=== PATIENT | male | born 1950 | race Caucasian/White ===

== ENCOUNTER 2019-10-17 16:06 | Day surgery (SDC) | payer MEDICARE, SELFPAY ==
[2019-10-17] VITALS (9 sets, daily range): BP systolic 111–168; BP diastolic 59–99; PULSE 63–91; RESP 16–22; TEMP 36.6–37; O2SAT 93–97
--- NOTE | 2019-10-17 16:29 | ED.GENADULT ---
HPI - General Adult General Chief complaint: Unspecified Stated complaint: food bolus Time Seen by Provider: 10/17/19 16:08 Source: RN notes reviewed History of Present Illness HPI narrative: Patient presents emergency department from home for esophageal food impaction. Patient states he was eating roast beef approximate 1 PM states the food became stuck. He states he has a history of food impactions performed past and has been dilated by Dr. Roper with the last time approximately 5 years ago. He states he is tried drinking Sprite with normal results and the Sprite will come right back up. he denies any fevers or chills chest pain shortness of breath or any other symptoms Related Data Home Medications Medication Instructions Recorded Confirmed amlodipine 10/17/19 brinzolamide [Azopt] 10/17/19 10/17/19 budesonide-formoterol [Symbicort] INHALATION 10/17/19 clopidogrel 10/17/19 lisinopril 10/17/19 methylprednisolone mg 10/17/19 rosuvastatin mg 10/17/19 Allergies Allergy/AdvReac Type Severity Reaction Status Date / Time pilocarpine Allergy Unknown FELT LIKE Verified 10/17/19 16:28 I WAS HAVING A HEART ATTACK, MY HEART WAS RACING timolol Allergy Unknown FELT LIKE Verified 10/17/19 16:28 I WAS HAVING A HEART ATTACK, MY HEART WAS RACING Review of Systems Review of Systems: Narrative: Gen.: Denies fevers or chills ENT: Denies congestion Respiratory: Denies shortness of breath or cough CV: Denies chest pain or palpitations GI: Denies abdominal pain nausea, emesis or diarrhea reports food impaction Musculoskeletal: Denies back pain or muscle pain Neuro: Denies numbness, tingling, weakness or focal weakness Skin: Denies rash Except as documented, all other systems reviewed and negative [facility] Past Medical History Medical History (Updated 10/17/19 @ 18:01 by Troy Abraham CRNA) Esophageal stricture Surgical History Surgical History (Updated 10/17/19 @ 18:02 by Troy Abraham CRNA) History of total bilateral knee replacement Social History Social History (Updated 10/17/19 @ 16:30 by Dharmesh Lazcano DO) Smoking status: Former smoker Gender identity (if verbalized by the patient): Male Exam Narrative: Exam Narrative: APPEARANCE: No acute distress, nontoxic, resting in bed EYES: EOMI HEENT: Normocephalic, atraumatic, OMM airway patent RESPIRATORY: No respiratory distress Clear to auscultation bilaterally with no rhonchi wheezing or rales. CARDIOVASCULAR: Regular rate and rhythm without murmurs rubs or gallops. ABDOMINAL: Soft, nontender, nondistended, no rebound or guarding MUSCULOSKELETAl: Moves all extremities. NEURO: Awake and alert. Following commands, speech normal, no focal deficits SKIN:: Warm, dry. No rashes lesions or abrasions PSYCHIATRIC: Normal affect/mood, Course Course Emergency Course: Patient given medications with no movement of food bolus. Called and discussed with Dr. Coyne. Will take patient to the GI lab at this time Discussed with patient plan for GI lab. In agreement Vital Signs Vital signs: Vital Signs Temperature 98.6 F 10/17/19 16:23 Pulse Rate 80 10/17/19 16:23 Respiratory Rate 17 10/17/19 16:23 Blood Pressure 134/99 H 10/17/19 16:23 Pulse Oximetry 97 10/17/19 16:23 Temperature 98.5 F 10/17/19 17:50 Pulse Rate 76 10/17/19 17:50 Respiratory Rate 16 10/17/19 17:50 Blood Pressure 113/81 10/17/19 17:50 Pulse Oximetry 97 10/17/19 17:50 Medical Decision Making Vital Signs Vital Signs: Vital Signs Temperature 98.6 F 10/17/19 16:23 Pulse Rate 80 10/17/19 16:23 Respiratory Rate 17 10/17/19 16:23 Blood Pressure 134/99 H 10/17/19 16:23 Pulse Oximetry 97 10/17/19 16:23 Temperature 98.5 F 10/17/19 17:50 Pulse Rate 76 10/17/19 17:50 Respiratory Rate 16 10/17/19 17:50 Blood Pressure 113/81 10/17/19 17:50 Pulse Oxime
[2019-10-17] MEDS: HYOSCYAMINE SULFATE 0.125 MG TABLET PO (16:31)
[2019-10-17] MEDS: GLUCAGON FOR INJ 1 MG VIAL IV PUSH (16:32)
[2019-10-17] MEDS: NITROGLYCERIN SL 0.4 MG TABLET SUBLINGUAL (17:06)
--- NOTE | 2019-10-17 17:52 | WPDANESEPP ---
Anes - Eval Pre Procedure Procedure: EGD food bolus extraction Date/Time: 10/17/19 17:52 Surgeon: Doretha Pre Op Diagnosis: food bolus Patient Data Age: 69 Gender: M Height: 1.75 m Weight: 90 kg Last Vital Signs Temp 36.9 C 10/17/19 17:50 Pulse 76 10/17/19 17:50 Resp 16 10/17/19 17:50 BP 113/81 10/17/19 17:50 Pulse Ox 97 10/17/19 17:50 Allergies Allergy/AdvReac Type Severity Reaction Status Date / Time pilocarpine Allergy Unknown FELT LIKE Verified 10/17/19 18:40 I WAS HAVING A HEART ATTACK, MY HEART WAS RACING timolol Allergy Unknown FELT LIKE Verified 10/17/19 18:40 I WAS HAVING A HEART ATTACK, MY HEART WAS RACING Home Medications Medication Instructions Recorded Confirmed Type Azopt 10/17/19 10/17/19 History amlodipine 10/17/19 History budesonide-formoterol [Symbicort] INHALATION 10/17/19 History clopidogrel 10/17/19 History lisinopril 10/17/19 History methylprednisolone mg 10/17/19 History rosuvastatin mg 10/17/19 History Patient hx anesthesia problems: none Family hx anesthesia problems: none PMFSH Past Medical History Medical History Esophageal stricture HTN (hypertension) Hypercholesteremia Overweight (BMI 25.0-29.9) Retinal detachment Surgical History Surgical History History of total bilateral knee replacement Social History Social History (Updated 10/17/19 @ 16:30 by Dharmesh Lazcano DO) Smoking status: Former smoker Gender identity (if verbalized by the patient): Male Exam Day of Procedure 10/17/19 17:52 Patient weight: overweight Heart: regular rate and rhythm Lungs: clear to auscultation and normal air movement Airway: Mallampati scale class II Neurological: alert and oriented
[2019-10-17 18:05] LABS: Basophils Absolute Auto 0.1 K/mm3 (0.0-0.1); Basophils Percent Auto 0.7 % (0.2-1.2); Eosinophils Absolute Auto 0.3 K/mm3 (0-0.3); Eosinophils Percent Auto 2.8 % (0-4.4); Hematocrit 45.1 % (42.0-52.0); Hemoglobin 15.8 g/dL (14.0-18.0); Immature Granulocyte Absolute 0.05 K/mm3 (0.00-0.031); Immature Granulocyte Percent A 0.4 % (0-0.5); Lymphocytes Absolute Auto 1.78 K/mm3 (0.9-3.2); Lymphocytes Percent Auto 15.6 % (18.3-44.2); Mean Corpuscular Hemoglobin 31.5 pg (26-34); Mean Platelet Volume 8.8 fl (7.4-10.4); Monocytes Absolute Auto 0.8 K/mm3 (0.1-0.6); Monocytes Percent Auto 6.7 % (2.6-8.5); Neutrophils Absolute Auto 8.4 K/mm3 (1.3-6.7); Neutrophils Percent Auto 73.8 % (45.5-73.1); Platelet Count Result 283 k/mm3 (150-375); Red Blood Count 5.01 M/mm3 (4.6-6.20); Red Cell Distribution Width 13.2 % (11.5-14.5); White Blood Count 11.4 K/mm3 (4.5-10.0)
[2019-10-17 18:12] LABS: Prothrombin Time 13.1 Seconds (11.1-14.7)
[2019-10-17 18:13] LABS: Partial Thromboplastin Time 26.5 SECONDS (22.3-36.8)
[2019-10-17 18:15] LABS: Anion Gap 9 mmol/L (8-16); Blood Urea Nitrogen 20 mg/dL (9-20); Calcium 9.2 mg/dL (8.4-10.2); Carbon Dioxide 22 mmol/L (22-30); Chloride 108 mmol/L (98-107); Estimated CRCL calculation 62 ml/min; Estimated Glomerular Filt Rate > 60; Glucose 102 mg/dL (75-110); Potassium 4.2 mmol/L (3.4-5.0); Sodium 139 mmol/L (137-145)
--- NOTE | 2019-10-17 18:29 | WPDANESEPPF ---
Anes - Initial Pre Proc Eval Date/Time: 10/17/19 18:29 Surgeon: Tyler Vernon MD Pre Op Diagnosis: food bolus Patient Data Age: 69 Gender: M Height: 1.75 m Weight: 90 kg Last Vital Signs Temp 36.8 C 10/17/19 18:24 Pulse 74 10/17/19 18:24 Resp 16 10/17/19 18:24 BP 147/80 H 10/17/19 18:24 Pulse Ox 95 10/17/19 18:24 Allergies Allergy/AdvReac Type Severity Reaction Status Date / Time pilocarpine Allergy Unknown FELT LIKE Verified 10/17/19 16:28 I WAS HAVING A HEART ATTACK, MY HEART WAS RACING timolol Allergy Unknown FELT LIKE Verified 10/17/19 16:28 I WAS HAVING A HEART ATTACK, MY HEART WAS RACING Home Medications Medication Instructions Recorded Confirmed Type amlodipine 10/17/19 History brinzolamide [Azopt] 10/17/19 10/17/19 History budesonide-formoterol [Symbicort] INHALATION 10/17/19 History clopidogrel 10/17/19 History lisinopril 10/17/19 History methylprednisolone mg 10/17/19 History rosuvastatin mg 10/17/19 History Laboratory Tests 10/17/19 10/17/19 10/17/19 17:58 17:58 17:58 WBC 11.4 K/mm3 H K/mm3 (4.5-10.0) RBC 5.01 M/mm3 M/mm3 (4.6-6.20) Hgb 15.8 g/dL g/dL (14.0-18.0) Hct 45.1 % % (42.0-52.0) MCV 90.0 fl fl (80-100) MCH 31.5 pg pg (26-34) MCHC 35.0 g/dl g/dl (32-36) RDW 13.2 % % (11.5-14.5) Plt Count 283 k/mm3 k/mm3 (150-375) MPV 8.8 fl fl (7.4-10.4) Immature Gran % (Auto) 0.4 % % (0-0.5) Neut % (Auto) 73.8 % H % (45.5-73.1) Lymph % (Auto) 15.6 % L % (18.3-44.2) [place] % (Auto) 6.7 % % (2.6-8.5) Eos % (Auto) 2.8 % % (0-4.4) Baso % (Auto) 0.7 % % (0.2-1.2) Lymph # (Auto) 1.78 K/mm3 K/mm3 (0.9-3.2) [place] # (Auto) 0.8 K/mm3 H K/mm3 (0.1-0.6) Eos # (Auto) 0.3 K/mm3 K/mm3 (0-0.3) Baso # (Auto) 0.1 K/mm3 K/mm3 (0.0-0.1) Abs Immat Gran (auto) 0.05 K/mm3 H K/mm3 (0.00-0.031) Absolute Neuts (auto) 8.4 K/mm3 H K/mm3 (1.3-6.7) Absolute Nucleated RBC 0.0 K/mm3 K/mm3 (0.0-0.012) Nucleated RBC % 0.0 % % (0.0-0.2) PT 13.1 Seconds Seconds (11.1-14.7) INR 1.0 APTT 26.5 SECONDS SECONDS (22.3-36.8) Sodium 139 mmol/L mmol/L (137-145) Potassium 4.2 mmol/L mmol/L (3.4-5.0) Chloride 108 mmol/L H mmol/L (98-107) Carbon Dioxide 22 mmol/L mmol/L (22-30) Anion Gap 9 mmol/L mmol/L (8-16) BUN 20 mg/dL mg/dL (9-20) Creatinine 1.00 mg/dL mg/dL (0.7-1.3) Estim Creat Clear Calc 62 ml/min ml/min Estimated GFR > 60 (59 - ) Glucose 102 mg/dL mg/dL (75-110) Calcium 9.2 mg/dL mg/dL (8.4-10.2) Patient hx anesthesia problems: none Family hx anesthesia problems: none [facility] Past Medical History Medical History (Updated 10/17/19 @ 18:36 by Zaid Brown MD) Esophageal stricture HTN (hypertension) Hypercholesteremia Overweight (BMI 25.0-29.9) Retinal detachment Surgical History Surgical History (Updated 10/17/19 @ 18:02 by Troy Abraham CRNA) History of total bilateral knee replacement Social History Social History (Updated 10/17/19 @ 16:30 by Dharmesh Lazcano DO) Smoking status: Former smoker Gender identity (if verbalized by the patient): Male Anes - Eval Final PreProcedure Day of Procedure 10/17/19 18:29 Patient weight: overweight Heart: regular rate and rhythm Lungs: clear to auscultation and normal air movement Airway: Mallampati scale class II Neurological: alert and oriented Last oral intake: >/= 8 hours ASA classification: III Emergent: yes Anesthetic plan: proceed Anesthesia type and monitoring: general ETT Informed Consent: The patient
--- NOTE | 2019-10-17 18:41 | PM.HPGS ---
History of Present Illness History of Present Illness Consent: Risks, benefits, and alternatives have been discussed and questions answered. Patient agrees to proceed with procedure. Chief complaint: food bolus Narrative: Jessee Holcomb is a 69 year old W male Who was eating roast beef at approximately 1:00 a.m. this afternoon and last by roast beef stuck in his esophagus began having pain unable to swallow secretions came emergency room and [facility] couple hours ago. Patient states he was seen by Dr. Roper several years ago had esophageal dilatation. I do not have those records available to me. the patient is on Plavix secondary to coronary artery disease. Did explain to him that if this is difficult to remove bleeding starts that I would have to stop. I also explained to him the risk of esophageal perforation. [facility] Past Medical History Medical History Esophageal stricture HTN (hypertension) Hypercholesteremia Overweight (BMI 25.0-29.9) Retinal detachment Surgical History Surgical History History of total bilateral knee replacement Social History Social History (Updated 10/17/19 @ 16:30 by Dharmesh Lazcano DO) Smoking status: Former smoker Gender identity (if verbalized by the patient): Male Meds Home Medications and Allergies Home Medications Medication Instructions Recorded Confirmed Type amlodipine 10/17/19 History brinzolamide [Azopt] 10/17/19 10/17/19 History budesonide-formoterol [Symbicort] INHALATION 10/17/19 History clopidogrel 10/17/19 History lisinopril 10/17/19 History methylprednisolone mg 10/17/19 History rosuvastatin mg 10/17/19 History Allergies Allergy/AdvReac Type Severity Reaction Status Date / Time pilocarpine Allergy Unknown FELT LIKE Verified 10/17/19 18:40 I WAS HAVING A HEART ATTACK, MY HEART WAS RACING timolol Allergy Unknown FELT LIKE Verified 10/17/19 18:40 I WAS HAVING A HEART ATTACK, MY HEART WAS RACING Vital Signs Vital Signs - 24 hr 10/17/19 16:23 10/17/19 17:05 10/17/19 17:08 Temperature 37.0 C Pulse Rate 80 91 72 Respiratory Rate 17 22 H Blood Pressure 134/99 H 141/96 H Pulse Oximetry 97 95 10/17/19 17:50 10/17/19 18:24 Temperature 36.9 C 36.8 C Pulse Rate 76 74 Respiratory Rate 16 16 Blood Pressure 113/81 147/80 H Pulse Oximetry 97 95 Exam Const: Orientation/consciousness: patient oriented x3 Resp: Auscultation: clear to auscultation bilaterally Cardio: Rate: regular rate Rhythm: regular rhythm Heart sounds: no murmurs GI: GI Palp: Yes Soft to palpation, No Tenderness to palpation present (GI), Yes No hepatosplenomegaly present and No Palpable mass present Auscultation: normal bowel sounds Neuro: General: patient oriented x3 and no focal motor deficits Extrem: General: no pedal edema Assessment and Plan Additional Plan EGD for removal of esophageal meat impaction
[2019-10-17] MEDS: LACTATED RINGERS 1,000 ML 150 ML IV CONT (18:43)
== END 2019-10-17 19:35 | disposition home or self-care (01) ==
LOC: ANHED 17:09 → ANHSURGERY 17:30
PROVIDERS: Emergency Provider Emergency Medicine; PCP Internal Medicine; Visit Provider Internal Medicine Gastroenterology
PROC: 0DP08DZ Removal of Intraluminal Device from Upper Intestinal Tract, Via Natural or Artificial Opening Endoscopic (ICD-10-PCS; CPT 43247; principal; 2019-10-17 18:30)
DX: T18.128A Food in esophagus causing other injury, initial encounter (principal); K22.2 Esophageal obstruction; I10 Essential (primary) hypertension; E78.00 Pure hypercholesterolemia, unspecified; I25.10 Atherosclerotic heart disease of native coronary artery without angina pectoris; Z79.02 Long term (current) use of antithrombotics/antiplatelets
CPT/HCPCS: 43247; 36415; 80048; 85025; 85610; 85730; 96374; 99285; A9270; J0330; J1610; J2001; J2704; J7120

== ENCOUNTER 2019-10-18 16:33 | Outpatient (CLI) | payer MEDICARE, SELFPAY ==
[2019-10-18 16:53] LABS: Basophils Percent Auto 0.6 % (0.2-1.2); Eosinophils Percent Auto 0.3 % (0-4.4); Hematocrit 44.9 % (42.0-52.0); Hemoglobin 15.6 g/dL (14.0-18.0); Immature Granulocyte Absolute 0.01 K/mm3 (0.00-0.031); Immature Granulocyte Percent A 0.2 % (0-0.5); Lymphocytes Absolute Auto 1.14 K/mm3 (0.9-3.2); Lymphocytes Percent Auto 17.8 % (18.3-44.2); Mean Corpuscular HGB Conc 34.7 g/dl (32-36); Mean Corpuscular Hemoglobin 31.5 pg (26-34); Mean Corpuscular Volume 90.5 fl (80-100); Mean Platelet Volume 8.8 fl (7.4-10.4); Monocytes Absolute Auto 0.1 K/mm3 (0.1-0.6); Monocytes Percent Auto 1.4 % (2.6-8.5); Neutrophils Absolute Auto 5.1 K/mm3 (1.3-6.7); Neutrophils Percent Auto 79.7 % (45.5-73.1); Platelet Count Result 278 k/mm3 (150-375); Red Blood Count 4.96 M/mm3 (4.6-6.20); Red Cell Distribution Width 13.2 % (11.5-14.5); White Blood Count 6.4 K/mm3 (4.5-10.0)
[2019-10-18 17:11] LABS: Alanine Aminotransferase 39 U/L (4-50); Albumin Level 4.5 g/dL (3.5-5.1); Alkaline Phosphatase 91 U/L (38-126); Anion Gap 10 mmol/L (8-16); Aspartate Amino Transferase 83 U/L (17-59); Bilirubin,Total 0.4 mg/dL (0.2-1.3); Blood Urea Nitrogen 15 mg/dL (9-20); Calcium 9.2 mg/dL (8.4-10.2); Carbon Dioxide 22 mmol/L (22-30); Chloride 106 mmol/L (98-107); Estimated Glomerular Filt Rate > 60; Glucose 140 mg/dL (75-110); Potassium 4.5 mmol/L (3.4-5.0); Sodium 138 mmol/L (137-145)
[2019-10-18 17:18] LABS: Creatine Kinase 5428 U/L (55-170); Erythrocyte Sedimentation Rate 11 mm/hr (0-20)
== END 2019-10-18 16:34 | disposition home or self-care (01) ==
LOC: ANHLAB 16:36
PROVIDERS: PCP Internal Medicine; Visit Provider Internal Medicine
DX: M79.604 Pain in right leg (principal); M79.605 Pain in left leg
CPT/HCPCS: 36415; 80053; 82550; 85025; 85652

== ENCOUNTER 2022-01-28 16:27 | Emergency (ER) | payer MEDICARE, SELFPAY ==
[2022-01-28 17:21] VITALS: BP 139/75; PULSE 64; RESP 18; TEMP 36.8; O2SAT 97
--- NOTE | 2022-01-28 19:10 | PC.NURSE ---
pt to intake desk to inquire about wait time. pt told unable to give out wait times.
--- NOTE | 2022-01-28 19:16 | PC.NURSE ---
pt to desk asking to be taken off list because he is out of here . pt ambulatory out of ed with steady gait and in no obvious acute distress.
== END 2022-01-28 19:16 | disposition left against medical advice (07) ==
LOC: ANHED 19:25
PROVIDERS: PCP Internal Medicine
DX: K64.9 Unspecified hemorrhoids (principal)
CPT/HCPCS: 99199

== ENCOUNTER 2023-06-27 08:40 | Outpatient (CLI) | payer MEDICARE, SELFPAY ==
--- NOTE | ~2023-06-27 | US_ITS ---
EXAMINATION: US aorta DATE: 06/27/2023 09:03 INDICATION: Abdominal aortic aneurysm without rupture. TECHNIQUE: Grayscale, color Doppler, and pulsed Doppler images of the aorta and common iliac arteries were obtained. COMPARISON: None. FINDINGS: The aorta demonstrates a 3.5 cm fusiform infrarenal aneurysm. The right common iliac artery is normal in caliber. The left common iliac artery is normal in caliber. IMPRESSION: 1. 3.5 cm fusiform infrarenal aortic aneurysm. Reviewed, dictated and finalized at location A.
== END 2023-06-27 08:41 ==
LOC: MICIMG 08:41
PROVIDERS: PCP Internal Medicine; Visit Provider Internal Medicine
DX: I71.43 Infrarenal abdominal aortic aneurysm, without rupture (principal)
CPT/HCPCS: 76775

== ENCOUNTER 2023-07-19 20:11 | Emergency (ER) | payer MEDICARE, SELFPAY ==
--- NOTE | 2023-07-19 20:35 | ED.GENADULT ---
HPI - General Adult General Chief complaint: Skin/Abscess/Foreign Body Stated complaint: food bolus Time Seen by Provider: 07/19/23 20:18 History of Present Illness HPI narrative: 73-year-old male presents to the emergency department for evaluation for suspected esophageal food bolus. Patient does have prior issues with esophageal stricture and has previously had to be dilated by GI. Most recent dilation was approximately 2 years ago. Patient states that he was eating a steak with ribs approximately 530 this afternoon and felt that it got stuck. Patient has been able to handle his secretions since then. Related Data Home Medications Medication Instructions Recorded Confirmed amlodipine 5 mg tablet 10/17/19 06/27/23 brinzolamide 1 % eye 10/17/19 06/27/23 drops,suspension (Azopt) budesonide-formoterol HFA 80 inhalation 10/17/19 06/27/23 mcg-4.5 mcg/actuation aerosol inhaler (Symbicort) lisinopril 20 mg tablet 10/17/19 06/27/23 rosuvastatin 20 mg tablet mg 10/17/19 06/27/23 albuterol sulfate 90 mcg/actuation 1 puff inhalation Q4H PRN 06/27/23 06/27/23 aerosol inhaler nitroglycerin 0.4 mg sublingual 0.4 mg sublingual Q5M PRN 06/27/23 06/27/23 tablet tramadol 50 mg tablet 50 mg PO Q6H PRN 06/27/23 06/27/23 Allergies Allergy/AdvReac Type Severity Reaction Status Date / Time pilocarpine Allergy Unknown FELT LIKE Verified 06/27/23 13:05 I WAS HAVING A HEART ATTACK, MY HEART WAS RACING timolol Allergy Unknown FELT LIKE Verified 06/27/23 13:05 I WAS HAVING A HEART ATTACK, MY HEART WAS RACING Review of Systems Review of Systems: All systems reviewed & are unremarkable except as noted in HPI and below PMFSH Past Medical History Medical History (Updated 07/19/23 @ 20:39 by Toño Arredondo Jr., CRNA) Asthma Esophageal obstruction due to food impaction Esophageal stricture History of heart attack History of heart disease HTN (hypertension) Hypercholesteremia Overweight (BMI 25.0-29.9) Retinal detachment Surgical History Surgical History History of coronary artery stent placement History of lung surgery 2022 History of total bilateral knee replacement Family History Family History Father Cancer Mother Hypertension Heart disease Cerebrovascular accident Sibling Asthma Thyroid disorder Hypertension Heart disease Social History Social History (Updated 06/27/23 @ 13:09 by Alena Araya MA) Smoking status: Former smoker Do You Feel Safe in your Home?: Yes Lack of Transportation: No Lack of Food: Never True Current Housing: I Have Housing Concerned About Future Housing: No Difficulty Paying Gas/Electric Bills: No Difficulty Paying for Meds: No Currently Unemployed: No Education: High School Diploma/GED Difficulty w/ Childcare or Family Care: No Gender identity (if verbalized by the patient): Male Exam Narrative: APPEARANCE: Well appearing, no pain, no distress, well-nourished. HEAD: normocephalic, atraumatic. EYES: PERRLA/EOMI, conjunctivae clear. NOSE: Normal no drainage EARS:TMS clear with good light reflex. THROAT: Pharynx clear, no exudate. NECK: Supple. No adenopathy, no masses. RESPIRATORY: Airway patent, respirations nonlabored. Clear to auscultation bilaterally, no rales, rhonchi, wheezing. CARDIOVASCULAR: Regular rate and rhythm without murmurs rubs or gallops. ABDOMINAL: Not tolerating p.o. or handling his own secretions MUSCULOSKELETAL: Moves all extremities. Strength/ROM intact, No edema, No calf tenderness. NEURO: Alert. Cranial nerves II through XII intact. Course Vital Signs Vital signs: Vital Signs Temperature 98.4 F 07/19/23 20:44 Pulse Rate 61 07/19/23 20:44 Respiratory Rate 15 07/19/23 20:44 Blood Pressure 129/77 07/19/23
--- NOTE | 2023-07-19 20:38 | P.PNAN_ITS ---
Anes - Eval Pre Procedure Procedure: EGD Date/Time: 07/19/23 20:38 Surgeon: Francisco Pre Op Diagnosis: food bolus Patient Data Age: 73 Gender: M Height: 1.75 m Weight: 84 kg Allergies Allergy/AdvReac Type Severity Reaction Status Date / Time pilocarpine Allergy Unknown FELT LIKE Verified 06/27/23 13:05 I WAS HAVING A HEART ATTACK, MY HEART WAS RACING timolol Allergy Unknown FELT LIKE Verified 06/27/23 13:05 I WAS HAVING A HEART ATTACK, MY HEART WAS RACING Home Medications Medication Instructions Recorded Confirmed Type amlodipine 5 mg tablet 10/17/19 06/27/23 History brinzolamide 1 % eye 10/17/19 06/27/23 History drops,suspension (Azopt) budesonide-formoterol HFA 80 inhalation 10/17/19 06/27/23 History mcg-4.5 mcg/actuation aerosol inhaler (Symbicort) lisinopril 20 mg tablet 10/17/19 06/27/23 History rosuvastatin 20 mg tablet mg 10/17/19 06/27/23 History albuterol sulfate 90 mcg/actuation 1 puff inhalation Q4H PRN 06/27/23 06/27/23 History aerosol inhaler hydrocortisone 2.5 % topical cream 1 applic RECTAL QHS PRN 06/27/23 06/27/23 Rx with perineal applicator hemorrhoids #30 grams (Anusol-HC) nitroglycerin 0.4 mg sublingual 0.4 mg sublingual Q5M PRN 06/27/23 06/27/23 History tablet tramadol 50 mg tablet 50 mg PO Q6H PRN 06/27/23 06/27/23 History Patient hx anesthesia problems: none Family hx anesthesia problems: none Results Review: All pre-operative results and documents have been reviewed as part of the pre- operative evaluation. [facility] Past Medical History Medical History (Updated 07/19/23 @ 20:39 by Toño Arredondo Jr., CRNA) Asthma Esophageal obstruction due to food impaction Esophageal stricture History of heart attack History of heart disease HTN (hypertension) Hypercholesteremia Overweight (BMI 25.0-29.9) Retinal detachment Surgical History Surgical History History of coronary artery stent placement History of lung surgery 2022 History of total bilateral knee replacement Family History Family History Father Cancer Mother Hypertension Heart disease Cerebrovascular accident Sibling Asthma Thyroid disorder Hypertension Heart disease Social History Social History (Updated 06/27/23 @ 13:09 by Alena Araya MA) Smoking status: Former smoker Do You Feel Safe in your Home?: Yes Lack of Transportation: No Lack of Food: Never True Current Housing: I Have Housing Concerned About Future Housing: No Difficulty Paying Gas/Electric Bills: No Difficulty Paying for Meds: No Currently Unemployed: No Education: High School Diploma/GED Difficulty w/ Childcare or Family Care: No Gender identity (if verbalized by the patient): Male Exam Day of Procedure 07/19/23 20:38
[2023-07-19 20:44] VITALS: BP 129/77; PULSE 61; RESP 15; TEMP 36.9; O2SAT 98
[2023-07-19 20:45] VITALS: O2SAT 99
--- NOTE | 2023-07-19 21:07 | PC.NURSE ---
While this RN was assessing pt, pt reported that he suddenly was able to clear his food bolus. This RN PO challenged pt and pt is now able to eat and drink with no difficulty. GI lab updated.
[2023-07-19 21:08] LABS: Basophils Absolute Auto 0.1 K/mm3 (0.0-0.1); Basophils Percent Auto 1.2 % (0.2-1.2); Eosinophils Absolute Auto 0.3 K/mm3 (0-0.3); Eosinophils Percent Auto 3.6 % (0-4.4); Hematocrit 46.9 % (42.0-52.0); Hemoglobin 16.2 g/dL (14.0-18.0); Immature Granulocyte Absolute 0.01 K/mm3 (0.00-0.031); Immature Granulocyte Percent A 0.1 % (0-0.5); Lymphocytes Absolute Auto 1.95 K/mm3 (0.9-3.2); Lymphocytes Percent Auto 28.3 % (18.3-44.2); Mean Corpuscular HGB Conc 34.5 g/dl (32-36); Mean Corpuscular Hemoglobin 31.5 pg (26-34); Mean Corpuscular Volume 91.2 fl (80-100); Mean Platelet Volume 8.9 fl (7.4-10.4); Monocytes Absolute Auto 0.6 K/mm3 (0.1-0.6); Monocytes Percent Auto 8.1 % (2.6-8.5); Neutrophils Percent Auto 58.7 % (45.5-73.1); Platelet Count Result 276 k/mm3 (150-375); Red Blood Count 5.14 M/mm3 (4.6-6.20); Red Cell Distribution Width 13.3 % (11.5-14.5); White Blood Count 6.9 K/mm3 (4.5-10.0)
[2023-07-19 21:13] LABS: Alanine Aminotransferase 29 U/L (6-50); Albumin Level 4.6 g/dL (3.5-5.1); Alkaline Phosphatase 119 U/L (38-126); Anion Gap 8 mmol/L (4-12); Aspartate Amino Transferase 32 U/L (17-59); Bilirubin,Total 0.6 mg/dL (0.2-1.3); Blood Urea Nitrogen 18 mg/dL (9-20); Calcium 9.6 mg/dL (8.4-10.2); Carbon Dioxide 23 mmol/L (22-30); Chloride 110 mmol/L (98-107); Estimated CRCL calculation 58 ml/min; Estimated Glomerular Filt Rate > 60; Glucose 102 mg/dL (65-110); Sodium 141 mmol/L (137-145)
[2023-07-19 21:16] LABS: Partial Thromboplastin Time 27.7 Seconds (22.3-36.8); Prothrombin Time 13.6 Seconds (11.1-14.7)
== END 2023-07-19 21:38 | disposition home or self-care (01) ==
LOC: ANHED 20:38 → ANHSURGERY 21:16 → ANHED 21:24
PROVIDERS: Emergency Provider Emergency Medicine; PCP Internal Medicine
DX: T18.128A Food in esophagus causing other injury, initial encounter (principal); I25.2 Old myocardial infarction; I11.9 Hypertensive heart disease without heart failure; J45.909 Unspecified asthma, uncomplicated; E78.00 Pure hypercholesterolemia, unspecified; E66.3 Overweight; Z68.27 Body mass index [BMI] 27.0-27.9, adult; Z95.5 Presence of coronary angioplasty implant and graft; Z96.653 Presence of artificial knee joint, bilateral; Z87.891 Personal history of nicotine dependence; Z79.899 Other long term (current) drug therapy; W44.F3XA Food entering into or through a natural orifice, initial encounter
CPT/HCPCS: 36415; 80053; 85025; 85610; 85730; 96372; 99283

== ENCOUNTER 2023-08-09 12:38 | Outpatient (CLI) | payer MEDICARE, SELFPAY ==
--- NOTE | 2023-08-09 12:49 | ECG_ITS ---
Test Date: 2023-08-09 13:03:00 Measurements Intervals [place] Rate: 60 P: 62 CA: 175 QRS: -2 QRSD: 100 T: 49 QT: 396 QTc: 397 Interpretive Statements SINUS RHYTHM NORMAL ECG No previous ECG available for comparison Electronically Signed On 08-09-2023 15:17:27 CDT by Sherman Craft M.D.
== END 2023-08-09 12:39 | disposition home or self-care (01) ==
LOC: ANHLAB 12:39
PROVIDERS: PCP Internal Medicine; Visit Provider Anesthesiology
DX: Z01.818 Encounter for other preprocedural examination (principal)
CPT/HCPCS: 93005

== ENCOUNTER 2023-08-15 07:00 | Outpatient (NON) | payer MEDICARE, SELFPAY | END 2023-08-15 07:01 | disposition home or self-care (01) | LOC: ANHLAB 08-16 08:34 | PROVIDERS: PCP Internal Medicine; Visit Provider Internal Medicine Gastroenterology | DX: T18.128A Food in esophagus causing other injury, initial encounter (principal) | CPT/HCPCS: 88305 ==

== ENCOUNTER 2023-08-15 08:31 | Day surgery (SDC) | payer MEDICARE, SELFPAY ==
[2023-07-31 11:49] VITALS: BMI 28.0
--- NOTE | 2023-08-08 13:52 | PM.HPGS ---
History of Present Illness History of Present Illness Consent: Risks, benefits, and alternatives have been discussed and questions answered. Patient agrees to proceed with procedure. Chief complaint: Other intestinal obstruction unspec.as to partial Narrative: Jessee Holcomb is a 73 year old male who is here for investigation of dysphagia. He was seen recently in the emergency room because a piece of steak had gotten stuck. He did have a food bolus which was removed 4 years ago. He states that he had esophageal dilatation 2 years ago.. Ten or 12 years ago I had performed an esophageal dilatation. Review of Systems Review of Systems: All systems reviewed & are unremarkable except as noted in HPI and below PMFSH Past Medical History Medical History Asthma COPD (chronic obstructive pulmonary disease) Esophageal obstruction due to food impaction Esophageal stricture History of heart attack History of heart disease HTN (hypertension) Hypercholesteremia Overweight (BMI 25.0-29.9) Retinal detachment Surgical History Surgical History History of coronary artery stent placement 2000, 2001, 2020x3 History of lung surgery 2022 - removal calcified lymph node History of total bilateral knee replacement Family History Family History Father Cancer Mother Hypertension Heart disease Cerebrovascular accident Sibling Asthma Thyroid disorder Hypertension Heart disease Social History Social History Smoking status: Former smoker Substance use type: does not use Do You Feel Safe in your Home?: Yes Lack of Transportation: No Lack of Food: Never True Current Housing: I Have Housing Concerned About Future Housing: No Difficulty Paying Gas/Electric Bills: No Difficulty Paying for Meds: No Currently Unemployed: No Education: High School Diploma/GED Difficulty w/ Childcare or Family Care: No Living arrangements: with family Gender identity (if verbalized by the patient): Male Meds Home Medications and Allergies Home Medications Medication Instructions Recorded Confirmed Type amlodipine 5 mg tablet 5 mg PO DIRECTED 10/17/19 08/15/23 History budesonide-formoterol HFA 80 1 puff inhalation DIRECTED 10/17/19 08/15/23 History mcg-4.5 mcg/actuation aerosol inhaler (Symbicort) lisinopril 20 mg tablet 20 mg PO DIRECTED 10/17/19 08/15/23 History rosuvastatin 20 mg tablet 20 mg PO DIRECTED 10/17/19 08/15/23 History albuterol sulfate 90 mcg/actuation 1 puff inhalation Q4H PRN Wheezing 06/27/23 08/15/23 History aerosol inhaler hydrocortisone 2.5 % topical cream 1 applic RECTAL QHS PRN 06/27/23 08/15/23 Rx with perineal applicator hemorrhoids #30 grams (Anusol-HC) nitroglycerin 0.4 mg sublingual 0.4 mg sublingual Q5M PRN Chest 06/27/23 08/15/23 History tablet Pain tramadol 50 mg tablet 50 mg PO Q6H PRN Pain 06/27/23 08/15/23 History omeprazole 20 mg capsule,delayed 20 mg PO DAILY 14 days #14 caps 07/19/23 08/15/23 Rx release Allergies Allergy/AdvReac Type Severity Reaction Status Date / Time pilocarpine Allergy Unknown FELT LIKE Verified 08/15/23 09:54 I WAS HAVING A HEART ATTACK, MY HEART WAS RACING timolol Allergy Unknown FELT LIKE Verified 08/15/23 09:54 I WAS HAVING A HEART ATTACK, MY HEART WAS RACING Exam Const: General: alert Orientation/consciousness: patient oriented x3 Resp: Auscultation: clear to auscultation bilaterally Cardio: Rhythm: regular rhythm GI: GI Palp: Yes Soft to palpation and No Tenderness to palpation present (GI) Neuro: General: patient oriented x3 Assessment and Plan Assessment and plan (1) Dysphagia: Code(s): R13.10
--- NOTE | 2023-08-14 07:32 | WPDANESEPPF ---
Anes - Initial Pre Proc Eval Procedure: Operation Date: 08/15/23 11:00 Proposed Procedures p Esophagogastroduodenoscopy - Jaime Roper MD Date/Time: 08/14/23 07:32 Surgeon: Jaime Roper MD Pre Op Diagnosis: Other intestinal obstruction unspec.as to partial Patient Data Age: 73 Gender: M Height: 1.75 m Weight: 86.183 kg Allergies Allergy/AdvReac Type Severity Reaction Status Date / Time pilocarpine Allergy Unknown FELT LIKE Verified 08/15/23 09:54 I WAS HAVING A HEART ATTACK, MY HEART WAS RACING timolol Allergy Unknown FELT LIKE Verified 08/15/23 09:54 I WAS HAVING A HEART ATTACK, MY HEART WAS RACING Home Medications Medication Instructions Recorded Confirmed Type amlodipine 5 mg tablet 5 mg PO DIRECTED 10/17/19 08/15/23 History budesonide-formoterol HFA 80 1 puff inhalation DIRECTED 10/17/19 08/15/23 History mcg-4.5 mcg/actuation aerosol inhaler (Symbicort) lisinopril 20 mg tablet 20 mg PO DIRECTED 10/17/19 08/15/23 History rosuvastatin 20 mg tablet 20 mg PO DIRECTED 10/17/19 08/15/23 History albuterol sulfate 90 mcg/actuation 1 puff inhalation Q4H PRN Wheezing 06/27/23 08/15/23 History aerosol inhaler hydrocortisone 2.5 % topical cream 1 applic RECTAL QHS PRN 06/27/23 08/15/23 Rx with perineal applicator hemorrhoids #30 grams (Anusol-HC) nitroglycerin 0.4 mg sublingual 0.4 mg sublingual Q5M PRN Chest 06/27/23 08/15/23 History tablet Pain tramadol 50 mg tablet 50 mg PO Q6H PRN Pain 06/27/23 08/15/23 History omeprazole 20 mg capsule,delayed 20 mg PO DAILY 14 days #14 caps 07/19/23 08/15/23 Rx release Patient hx anesthesia problems: none Family hx anesthesia problems: none Results Review: All pre-operative results and documents have been reviewed as part of the pre-operative evaluation. [facility] Past Medical History Medical History Asthma COPD (chronic obstructive pulmonary disease) Esophageal obstruction due to food impaction Esophageal stricture History of heart attack History of heart disease HTN (hypertension) Hypercholesteremia Overweight (BMI 25.0-29.9) Retinal detachment Surgical History Surgical History (Updated 08/15/23 @ 10:34 by Navjot Rojas DO) History of coronary artery stent placement 2000, 2001, 2020x3 History of lung surgery 2022 - removal calcified lymph node History of total bilateral knee replacement Family History Family History Father Cancer Mother Hypertension Heart disease Cerebrovascular accident Sibling Asthma Thyroid disorder Hypertension Heart disease Social History Social History Smoking status: Former smoker Substance use type: does not use Do You Feel Safe in your Home?: Yes Lack of Transportation: No Lack of Food: Never True Current Housing: I Have Housing Concerned About Future Housing: No Difficulty Paying Gas/Electric Bills: No Difficulty Paying for Meds: No Currently Unemployed: No Education: High School Diploma/GED Difficulty w/ Childcare or Family Care: No Living arrangements: with family Gender identity (if verbalized by the patient): Male Anes - Eval Final PreProcedure Day of Procedure 08/14/23 07:32 Patient weight: overweight Heart: regular rate and rhythm Lungs: clear to auscultation Airway: Mallampati scale class 1 Neurological: alert and oriented Last oral intake: >/= 8 hours ASA classification: III Emergent: no Anesthetic plan: proceed Anesthesia type and monitoring: general GIVS and standard monitoring Results Review: All pre-operative results and documents have been reviewed as part of the pre-operative evaluation. Informed Consent: The patient's anesthetic plan and its attendant risks and benefit
[2023-08-15 09:55] VITALS: BP 133/85; PULSE 69; RESP 18; TEMP 37.3; O2SAT 96
[2023-08-15] MEDS: LACTATED RINGERS 1,000 ML 150 ML IV CONT (09:59)
[2023-08-15 10:52] VITALS: BP 89/61; PULSE 69; RESP 18; O2SAT 95
[2023-08-15 11:02] VITALS: BP 95/64; PULSE 62; RESP 16; O2SAT 94
[2023-08-15 11:12] VITALS: BP 106/64; PULSE 62; RESP 16; O2SAT 98
--- NOTE | 2023-08-15 13:43 | WPDANESPN ---
Anes - Prog Note Post-Op Date/Time: 08/15/23 13:43 Cardiovascular status: normal Respiratory status: normal Airway patency: baseline Mental status: baseline Post-Op hydration status: normal Vital Signs: Last Vital Signs Temp 37.3 C 08/15/23 09:55 Pulse 62 08/15/23 11:12 Resp 16 08/15/23 11:12 BP 106/64 08/15/23 11:12 Pulse Ox 98 08/15/23 11:12 O2 Del Method Room Air 08/15/23 11:12 Pain Score (VAS): 0 I/O: Intake & Output 08/14/23 08/15/23 08/15/23 23:59 07:59 15:59 Intake Total 250 Balance 250 Post-procedural complaints: none Patient Feedback: Patient satisfied with anesthetic care. Other Findings: Patient vital signs back to baseline. Patient denies nausea and vomiting. Patient's pain under control. Patient OK for discharge.
== END 2023-08-15 11:36 | disposition home or self-care (01) ==
PROVIDERS: PCP Internal Medicine; Visit Provider Internal Medicine Gastroenterology
PROC: 0DJ08ZZ Inspection of Upper Intestinal Tract, Via Natural or Artificial Opening Endoscopic (ICD-10-PCS; CPT 43235; principal; 2023-08-15 11:00)
DX: R13.19 Other dysphagia (principal); K22.2 Esophageal obstruction; K21.00 Gastro-esophageal reflux disease with esophagitis, without bleeding; K44.9 Diaphragmatic hernia without obstruction or gangrene
CPT/HCPCS: 43249; 43239

== ENCOUNTER 2023-10-16 06:51 | Day surgery (SDC) | payer MEDICARE, SELFPAY ==
[2023-08-16 08:45] VITALS: BMI 28.0
[2023-10-02 10:15] VITALS: BMI 27.6
--- NOTE | 2023-10-10 12:10 | PM.HPGS ---
History of Present Illness History of Present Illness Consent: Risks, benefits, and alternatives have been discussed and questions answered. Patient agrees to proceed with procedure. Chief complaint: Esophageal Stricture Narrative: Jessee Holcomb is a 73 year old male. He is having difficulty swallowing. He has been found have a severe stricture which was partially dilated a few months ago. Review of Systems Review of Systems: All systems reviewed & are unremarkable except as noted in HPI and below PMFSH Past Medical History Medical History Asthma COPD (chronic obstructive pulmonary disease) Esophageal obstruction due to food impaction Esophageal stricture History of heart attack History of heart disease HTN (hypertension) Hypercholesteremia Overweight (BMI 25.0-29.9) Retinal detachment Surgical History Surgical History History of coronary artery stent placement 2000, 2001, 2020x3 History of lung surgery 2022 - removal calcified lymph node History of total bilateral knee replacement Family History Family History Father Cancer Mother Hypertension Heart disease Cerebrovascular accident Sibling Asthma Thyroid disorder Hypertension Heart disease Social History Social History Smoking status: Never smoker Alcohol intake: never Substance use: never Substance use type: does not use Do You Feel Safe in your Home?: Yes Lack of Transportation: No Lack of Food: Never True Current Housing: I Have Housing Concerned About Future Housing: No Difficulty Paying Gas/Electric Bills: No Difficulty Paying for Meds: No Currently Unemployed: No Education: High School Diploma/GED Difficulty w/ Childcare or Family Care: No Living arrangements: with family Gender identity (if verbalized by the patient): Male Spiritual care concerns: No Meds Home Medications and Allergies Home Medications Medication Instructions Recorded Confirmed Type amlodipine 5 mg tablet 5 mg PO HS 10/17/19 10/16/23 History budesonide-formoterol HFA 80 1 puff inhalation DIRECTED 10/17/19 10/16/23 History mcg-4.5 mcg/actuation aerosol inhaler (Symbicort) lisinopril 20 mg tablet 20 mg PO HS 10/17/19 10/16/23 History rosuvastatin 20 mg tablet 20 mg PO HS 10/17/19 10/16/23 History albuterol sulfate 90 mcg/actuation 1 puff inhalation Q4H PRN Wheezing 06/27/23 10/16/23 History aerosol inhaler hydrocortisone 2.5 % topical cream 1 applic RECTAL QHS PRN 06/27/23 10/16/23 Rx with perineal applicator hemorrhoids #30 grams (Anusol-HC) nitroglycerin 0.4 mg sublingual 0.4 mg sublingual Q5M PRN Chest 06/27/23 10/16/23 History tablet Pain tramadol 50 mg tablet 50 mg PO Q6H PRN Pain 06/27/23 10/16/23 History pantoprazole 40 mg tablet,delayed 40 mg PO HS 10/02/23 10/16/23 History release Allergies Allergy/AdvReac Type Severity Reaction Status Date / Time pilocarpine Allergy Unknown FELT LIKE Verified 10/16/23 07:31 I WAS HAVING A HEART ATTACK, MY HEART WAS RACING timolol Allergy Unknown FELT LIKE Verified 10/16/23 07:31 I WAS HAVING A HEART ATTACK, MY HEART WAS RACING Exam Resp: Auscultation: clear to auscultation bilaterally Cardio: Rate: regular rate Rhythm: regular rhythm GI: GI Palp: Yes Soft to palpation and No Tenderness to palpation present (GI) Assessment and Plan Assessment and plan (1) Dysphagia: Code(s): R13.10 - Dysphagia, unspecified Status: Acute Assessment and Plan: EGD with possible biopsy or dilatation or cautery.
--- NOTE | 2023-10-16 06:53 | WPDANESEPPF ---
Anes - Initial Pre Proc Eval Procedure: Operation Date: 10/16/23 08:30 Proposed Procedures p Esophagogastroduodenoscopy - Jaime Roper MD Date/Time: 10/16/23 06:53 Surgeon: Jaime Roper MD Pre Op Diagnosis: Esophageal Stricture Patient Data Age: 73 Gender: M Height: 1.75 m Weight: 85 kg Allergies Allergy/AdvReac Type Severity Reaction Status Date / Time pilocarpine Allergy Unknown FELT LIKE Verified 10/16/23 07:31 I WAS HAVING A HEART ATTACK, MY HEART WAS RACING timolol Allergy Unknown FELT LIKE Verified 10/16/23 07:31 I WAS HAVING A HEART ATTACK, MY HEART WAS RACING Home Medications Medication Instructions Recorded Confirmed Type amlodipine 5 mg tablet 5 mg PO HS 10/17/19 10/16/23 History budesonide-formoterol HFA 80 1 puff inhalation DIRECTED 10/17/19 10/16/23 History mcg-4.5 mcg/actuation aerosol inhaler (Symbicort) lisinopril 20 mg tablet 20 mg PO HS 10/17/19 10/16/23 History rosuvastatin 20 mg tablet 20 mg PO HS 10/17/19 10/16/23 History albuterol sulfate 90 mcg/actuation 1 puff inhalation Q4H PRN Wheezing 06/27/23 10/16/23 History aerosol inhaler hydrocortisone 2.5 % topical cream 1 applic RECTAL QHS PRN 06/27/23 10/16/23 Rx with perineal applicator hemorrhoids #30 grams (Anusol-HC) nitroglycerin 0.4 mg sublingual 0.4 mg sublingual Q5M PRN Chest 06/27/23 10/16/23 History tablet Pain tramadol 50 mg tablet 50 mg PO Q6H PRN Pain 06/27/23 10/16/23 History pantoprazole 40 mg tablet,delayed 40 mg PO HS 10/02/23 10/16/23 History release Patient hx anesthesia problems: none Family hx anesthesia problems: none Results Review: All pre-operative results and documents have been reviewed as part of the pre-operative evaluation. [facility] Past Medical History Medical History Asthma COPD (chronic obstructive pulmonary disease) Esophageal obstruction due to food impaction Esophageal stricture History of heart attack History of heart disease HTN (hypertension) Hypercholesteremia Overweight (BMI 25.0-29.9) Retinal detachment Surgical History Surgical History History of coronary artery stent placement 2000, 2001, 2020x3 History of lung surgery 2022 - removal calcified lymph node History of total bilateral knee replacement Family History Family History Father Cancer Mother Hypertension Heart disease Cerebrovascular accident Sibling Asthma Thyroid disorder Hypertension Heart disease Social History Social History Smoking status: Never smoker Alcohol intake: never Substance use: never Substance use type: does not use Do You Feel Safe in your Home?: Yes Lack of Transportation: No Lack of Food: Never True Current Housing: I Have Housing Concerned About Future Housing: No Difficulty Paying Gas/Electric Bills: No Difficulty Paying for Meds: No Currently Unemployed: No Education: High School Diploma/GED Difficulty w/ Childcare or Family Care: No Living arrangements: with family Gender identity (if verbalized by the patient): Male Spiritual care concerns: No Anes - Eval Final PreProcedure Day of Procedure 10/16/23 06:53 Patient weight: overweight Heart: regular rate and rhythm Lungs: clear to auscultation Airway: Mallampati scale class 1 Neurological: alert and oriented Last oral intake: >/= 8 hours ASA classification: III Emergent: no Anesthetic plan: proceed Anesthesia type and monitoring: general GIVS and standard monitoring Results Review: All pre-operative results and documents have been reviewed as part of the pre-operative evaluation. Informed Consent: The patient's anesthetic plan and its attendant risks and benefit
[2023-10-16 07:33] VITALS: BMI 28.2
[2023-10-16] MEDS: LACTATED RINGERS 1,000 ML 150 ML IV CONT (07:46)
[2023-10-16 07:48] VITALS: BP 137/80; PULSE 59; RESP 16; TEMP 36.8; O2SAT 97
[2023-10-16 08:30] VITALS: BP 97/59; PULSE 64; RESP 14; O2SAT 95
[2023-10-16 08:40] VITALS: BP 98/60; PULSE 60; RESP 14; O2SAT 97
[2023-10-16 08:50] VITALS: BP 104/76; PULSE 65; RESP 16; O2SAT 95
--- NOTE | 2023-10-16 11:13 | WPDANESPN ---
Anes - Prog Note Post-Op Date/Time: 10/16/23 11:13 Cardiovascular status: normal Respiratory status: normal Airway patency: baseline Mental status: baseline Post-Op hydration status: normal Vital Signs: Last Vital Signs Temp 36.8 C 10/16/23 07:48 Pulse 65 10/16/23 08:50 Resp 16 10/16/23 08:50 BP 104/76 10/16/23 08:50 Pulse Ox 95 10/16/23 08:50 O2 Del Method Room Air 10/16/23 08:50 Pain Score (VAS): 0 I/O: Intake & Output 10/15/23 10/16/23 10/16/23 23:59 07:59 15:59 Intake Total 300 Balance 300 Post-procedural complaints: none Patient Feedback: Patient satisfied with anesthetic care. Other Findings: Patient vital signs back to baseline. Patient denies nausea and vomiting. Patient's pain under control. Patient OK for discharge.
== END 2023-10-16 09:01 | disposition home or self-care (01) ==
PROVIDERS: PCP Internal Medicine; Visit Provider Internal Medicine Gastroenterology
PROC: 0DJ08ZZ Inspection of Upper Intestinal Tract, Via Natural or Artificial Opening Endoscopic (ICD-10-PCS; CPT 43235; principal; 2023-10-16 08:30)
DX: R13.19 Other dysphagia (principal); K22.2 Esophageal obstruction
CPT/HCPCS: 43249; 43239

== ENCOUNTER 2024-03-19 07:05 | Outpatient (CLI) | payer MEDICARE, SELFPAY ==
--- NOTE | ~2024-03-19 | MR_ITS ---
MRI of the lumbar spine Clinical History: Radiculopathy Technique: Axial T2-weighted images, and sagittal T1-weighted, T2-weighted, and and T2 fat-sat images were acquired. Findings: No acute fracture seen. There is 6 mm anterolisthesis of L4 over L5. There is 3 mm retrolis thesis of L2 over L3. There is 2 mm retrolisthesis of L1 over L2. No suspicious bone marrow signal ab normality seen. At L1-L2, there is moderate degenerative change. There is minimal disc bulge with moderate facet arth ropathy. No central canal stenosis. There is mild to moderate right neural foraminal narrowing, and m ild left neural foraminal narrowing. At L2-L3, there is mild degenerative disc narrowing. There is moderate facet arthropathy. No central canal stenosis. There is moderate bilateral neural foraminal narrowing. At L3-L4, there is mild degenerative disc narrowing. There is mild disc bulge with severe facet arthr opathy. No sophie central canal stenosis. There is severe bilateral neural foraminal narrowing, right worse than left. At L4-L5, there is diffuse disc bulge/uncovering with severe facet arthropathy. There is severe spina l canal stenosis/thecal sac compression. There is severe bilateral neural foraminal compromise. At L5-S1, there is mild disc bulge with moderate facet arthropathy. No central canal stenosis. There is mild left neural foraminal narrowing. Right neural foramen preserved. Paravertebral soft tissues are unremarkable. Impression: Moderate to severe degenerative spondylosis, as detailed above, worst at L4-L5. 6 mm anterolisthesis of L4 over L5. 3 mm retrolisthesis of L2 over L3. 2 mm retrolisthesis of L1 over L2. Reviewed, dictated and finalized at [facility]. [facility] [employer] Impression: Moderate to severe degenerative spondylosis, as detailed above, worst at L4-L5. 6 mm anterolisthesis of L4 over L5. 3 mm retrolisthesis of L2 over L3. 2 mm retrolisthesis of L1 over L2.
== END 2024-03-19 07:06 | disposition home or self-care (01) ==
LOC: MICIMG 07:06
PROVIDERS: PCP Internal Medicine; Visit Provider Nurse Practitioner Family
DX: M47.816 Spondylosis without myelopathy or radiculopathy, lumbar region (principal); M43.16 Spondylolisthesis, lumbar region
CPT/HCPCS: 72148